=== PATIENT | female | born 1995 | race Two or more races ===

== ENCOUNTER 2020-05-04 06:12 | Day surgery (SDC) | payer OTHER ==
[2020-05-04] MEDS ORDERED: PERCOCET 5-3251 EACH PO (13:19)
[2020-05-04] MEDS ORDERED: NEURONTIN300 MG PO (13:20)
[2020-05-04] MEDS ORDERED: BACTRIM DS TAB1 EACH PO (13:22)
== END 2020-05-04 18:35 | disposition home or self-care (01) ==
LOC: CIR.AMB 06:12
PROVIDERS: ATTEND Surgery
DX: L05.01 Pilonidal cyst with abscess (principal); Z20.828 Contact with and (suspected) exposure to other viral communicable diseases